=== PATIENT | male | born 1960 | race Caucasian/White ===

== ENCOUNTER 2020-06-21 10:35 | Emergency (ER) | payer MEDICARE, OTHER ==
[~2020-06-21] VITALS: Ht 182.9 cm; Wt 78.0 kg
[2020-06-21] MEDS ORDERED: cloNIDine HCL 0.1 MG TAB PO ONE (10:45)
[2020-06-21 11:00] LABS: Basophils # (auto) 0 10 ^3/uL (0-0.2); Basophils % (auto) 0.8 % (0.0-2.0); Eosinophils # (auto) 0 10 ^3/uL (0-0.8); Eosinophils % (auto) 0.7 % (0.0-7.0); Hemoglobin 13.7 g/dL (13.5-17.5); Lymphocytes # (auto) 0.9 10 ^3/uL (0.4-5.4); Mean Corpuscular Hemoglobin 32.5 pg (28.0-32.0); Mean Corpuscular Hgb Conc. 35.2 g/dL (32.0-36.0); Mean Corpuscular Volume 92.4 fL (80.0-100.0); Monocytes # (auto) 0.4 10 ^3/uL (0-1.3); Monocytes % (auto) 7.9 % (0.0-12.0); Neutrophils # (auto) 3.5 10 ^3/uL (1.6-8.6); Neutrophils % (auto) 72.6 % (37.0-80.0); Nucleated Red Blood Cells % 0.2 %; Platelet Count (auto) 242 10^3/uL (140-450); Red Blood Cells 4.22 10^6/uL (4.5-5.90); Red Cell Distribution Width 13.3 % (11.8-14.3); White Blood Cell 4.8 10^3/uL (4.4-10.8)
[2020-06-21 11:25] LABS: Albumin 3.7 g/dL (3.4-5.0); Anion Gap 4 (5-15); Blood Urea Nitrogen 14 mg/dL (7-18); Calcium 9.2 mg/dL (8.5-10.1); Carbon Dioxide 27 mmol/L (21-32); Chloride 111 mmol/L (98-107); Glucose 98 mg/dL (74-106); Potassium 3.2 mmol/L (3.5-5.1); Sodium 142 mmol/L (136-145)
[2020-06-21 11:31] LABS: Alanine Aminotransferase 23 U/L (16-61); Alkaline Phosphatase 82 U/L (45-117); Aspartate Aminotransferase 16 U/L (15-37); BUN/Creatinine Ratio 10.9; Bilirubin, Total 0.5 mg/dL (0.2-1.0); GFR African American 74 mL/min; GFR Non-African American 61 mL/min
[2020-06-21 12:05] VITALS: BP 111/75
== END 2020-06-21 12:21 | disposition home or self-care (01) ==
LOC: ER 10:35
DX: I16.0 Hypertensive urgency (principal); F12.10 Cannabis abuse, uncomplicated; Z85.818 Personal history of malignant neoplasm of other sites of lip, oral cavity, and pharynx
CPT/HCPCS: 36415; 80053; 84484; 85025; 93005